=== PATIENT | male | born 2000 | race Caucasian/White ===

== ENCOUNTER 2024-07-04 09:08 | Inpatient (IN) | payer MEDICAID ==
[~2024-07-04] VITALS: Ht 167.6 cm; Wt 48.0 kg
[2024-07-04] MEDS ORDERED: HYDR453.2 TOP (09:24)
[2024-07-04] MEDS ORDERED: QUET300T20 PO (09:24)
[2024-07-04] MEDS ORDERED: ESCI5TAB17 PO (09:24)
[2024-07-04] MEDS ORDERED: LAMO100T PO (09:24)
[2024-07-04] MEDS ORDERED: GUAN1TAB PO (09:24)
[2024-07-04] MEDS ORDERED: DIVA-74 PO (09:24)
[2024-07-04] MEDS ORDERED: KETO15CR2 TOP (09:24)
[2024-07-04] MEDS ORDERED: ERGO500054 (09:24)
[2024-07-04] MEDS: normal saline 1000ML IV soln IVB ONE (10:14)
[2024-07-04] MEDS: LORazepam 2 mg/ml vial IV ONE ×3 (10:14→17:13)
[2024-07-04 10:22] LABS: BASOPHILS % (AUTO) 0.2 % (0-1); EOSINOPHILS # (AUTO) 0.1 X10'3 (0-0.9); EOSINOPHILS % (AUTO) 2.1 % (0-6); HEMATOCRIT 42.7 % (42.0-52.0); HEMOGLOBIN 14.5 g/dl (14.0-17.9); LYMPHOCYTES # (AUTO) 1.3 X10'3 (1.1-4.8); LYMPHOCYTES % (AUTO) 19.5 % (21-51); MEAN CORPUSCULAR HEMOGLOBIN 34.2 PG (27.0-31.0); MEAN CORPUSCULAR HGB CONC 33.9 g/dL (33.0-36.5); MEAN CORPUSCULAR VOLUME 100.9 FL (78-98); MEAN PLATELET VOLUME 7.5 FL (7.4-10.4); MONOCYTES # (AUTO) 0.6 X10'3 (0-0.9); MONOCYTES % (AUTO) 9.3 % (2-12); NEUTROPHILS # (AUTO) 4.4 X10'3 (1.8-7.7); NEUTROPHILS % (AUTO) 68.9 % (42-75); PLATELET COUNT 218 X10'3 (140-440); RED BLOOD COUNT 4.24 X10'6 (4.70-6.10); RED CELL DISTRIBUTION WIDTH 12.9 % (11.5-14.5); WHITE BLOOD COUNT 6.4 X10'3 (4.5-11.0)
[2024-07-04 10:36] LABS: ALANINE AMINOTRANSFERASE 17 U/L (12-78); ALBUMIN 3.9 G/DL (3.4-5.0); ALBUMIN/GLOBULIN RATIO 1.2 (1.1-1.5); ALKALINE PHOSPHATASE 63 IU/L (46-116); ANION GAP 6 (8-16); ASPARTATE AMINO TRANSFERASE 8 U/L (10-37); BILIRUBIN,TOTAL 0.2 MG/DL (0.1-1.0); BLOOD UREA NITROGEN 17 MG/DL (7-18); BUN/CREATININE RATIO 19.1 (10.0-20.0); CALCIUM 9.1 MG/DL (8.5-10.1); CHLORIDE 107 MMOL/L (99-107); CREATININE 0.89 MG/DL (0.60-1.10); GLUCOSE 133 MG/DL (70-104); POTASSIUM 3.7 MMOL/L (3.5-5.1); SODIUM 145 MMOL/L (135-145); TOTAL CARBON DIOXIDE 31.7 MMOL/L (24-32); TOTAL PROTEIN 7.2 G/DL (6.4-8.2); eCRCL 89 ML/MIN; eGFR > 90 ML/MIN
[2024-07-04 10:47] LABS: PRO BRAIN NATRIURETIC PEPTIDE < 30 PG/ML (0-125)
[2024-07-04] MEDS: divalproex 250mg tablet, delayed-release PO ONE (11:13)
[2024-07-04] MEDS: Levetiracetam-NACL 500mg/100ml 100 ML IV ONE (11:27)
[2024-07-04] MEDS ORDERED: HYDROcodone/acetaminophen 5mg/325mg tablet PO PRN (11:35)
[2024-07-04] MEDS ORDERED: acetaminophen 325mg tablet PO PRN ×2 (11:35)
[2024-07-04] MEDS ORDERED: magnesium hydroxide 30ml (MOM) UD suspension PO PRN (11:35)
[2024-07-04] MEDS ORDERED: acetaminophen 650mg rectal suppository RC PRN (11:35)
[2024-07-04] MEDS ORDERED: morphine 2 MG/ML inj. syringe IV PRN (11:35)
[2024-07-04] MEDS ORDERED: mag hydrox/Alum hydrox/simeth 30ml oral suspension PO PRN (11:35)
[2024-07-04] MEDS ORDERED: diphenhydrAMINE 25mg capsule PO PRN (11:35)
[2024-07-04] MEDS ORDERED: ondansetron/PF 4mg/2ml inj IV PRN (11:35)
[2024-07-04] MEDS ORDERED: diphenhydrAMINE 50 mg/ml inj IV PRN (11:35)
[2024-07-04] MEDS ORDERED: ondansetron 4mg rapidly disintigrating tab PO PRN (11:35)
[2024-07-04] MEDS ORDERED: bisacodyl 10mg suppository rectal RC PRN (11:35)
[2024-07-04] MEDS: normal saline 1000ml 1,000 ML IV SCH (11:35)
[2024-07-04 12:00] LABS: PROTHROMBIN TIME 10.6 SECONDS (9.0-12.0)
[2024-07-04 12:06] LABS: MAGNESIUM 2.1 MG/DL (1.5-2.4); PHOSPHORUS 3.7 MG/DL (2.3-4.5)
[2024-07-04 12:08] LABS: APTT 26 SECONDS (22-32)
[2024-07-04 12:09] LABS: HEMOGLOBIN A1C 5.1 % (4.5-6.2)
[2024-07-04 12:44] LABS: CREATINE KINASE 61 U/L (39-308); LIPASE 26 U/L (16-77); THYROID STIMULATING HORMONE 2.67 ulU/ml (0.34-4.50); VALPROATE 34 UG/ML (50-100)
[2024-07-04 12:54] LABS: BILIRUBIN,URINE NEGATIVE (Neg); CLARITY,URINE CLEAR (Clear); COLOR,URINE YELLOW (Yellow); GLUCOSE, URINE NEGATIVE (Neg); KETONES,URINE NEGATIVE (Neg); LEUKOCYTE ESTERASE ,URINE NEGATIVE (Neg); NITRITES, URINE NEGATIVE (Neg); OCCULT BLOOD,URINE NEGATIVE (Neg); PH,URINE 6.5 (4.8-8.0); PROTEIN,URINE NEGATIVE (Neg); UROBILINOGEN,URINE 0.2 E.U/dL (0.2-1.0)
[2024-07-04 12:55] LABS: UA COLLECTION TYPE CLN CATCH MIDSTREAM
[2024-07-04 13:10] LABS: URINE AMPHETAMINE SCREEN NEGATIVE (Neg); URINE BARBITUATE SCREEN NEGATIVE (Neg); URINE BENZODIAZEPINES SCREEN NEGATIVE (Neg); URINE CANNABINOID SCREEN NEGATIVE (Neg); URINE COCAINE SCREEN NEGATIVE (Neg); URINE METHADONE SCREEN NEGATIVE (Neg); URINE OPIATE SCREEN NEGATIVE (Neg); URINE PHENCYCLIDINE SCREEN NEGATIVE (Neg)
[2024-07-04] MEDS: Levetiracetam-NACL 500mg/100ml 100 ML IV SCH (19:54)
[2024-07-04] MEDS: docusate sod 100mg capsule PO SCH (19:55)
[2024-07-04] MEDS: heparin, porcine 5000 units/ml vial SQ SCH (19:55)
[2024-07-04] MEDS ORDERED: levetiracetam inj 500 MG in normal saline 100ml IV soln 100 ML IV SCH (20:00)
[2024-07-04] MEDS ORDERED: quetiapine 100mg tablet PO ONE (23:36)
[2024-07-04] MEDS: quetiapine 100mg tablet PO STA (23:47)
[2024-07-05 03:01] LABS: BASOPHILS % (AUTO) 0.1 % (0-1); EOSINOPHILS # (AUTO) 0.2 X10'3 (0-0.9); EOSINOPHILS % (AUTO) 3.3 % (0-6); HEMATOCRIT 41.3 % (42.0-52.0); LYMPHOCYTES # (AUTO) 1.9 X10'3 (1.1-4.8); LYMPHOCYTES % (AUTO) 28.1 % (21-51); MEAN CORPUSCULAR HEMOGLOBIN 34.4 PG (27.0-31.0); MEAN CORPUSCULAR VOLUME 101.3 FL (78-98); MEAN PLATELET VOLUME 7.4 FL (7.4-10.4); MONOCYTES # (AUTO) 0.8 X10'3 (0-0.9); MONOCYTES % (AUTO) 11.1 % (2-12); NEUTROPHILS # (AUTO) 3.9 X10'3 (1.8-7.7); NEUTROPHILS % (AUTO) 57.4 % (42-75); PLATELET COUNT 217 X10'3 (140-440); RED BLOOD COUNT 4.08 X10'6 (4.70-6.10); RED CELL DISTRIBUTION WIDTH 13.1 % (11.5-14.5); WHITE BLOOD COUNT 6.9 X10'3 (4.5-11.0)
[2024-07-05 03:21] LABS: ALANINE AMINOTRANSFERASE 16 U/L (12-78); ALBUMIN 3.5 G/DL (3.4-5.0); ALBUMIN/GLOBULIN RATIO 1.2 (1.1-1.5); ALKALINE PHOSPHATASE 64 IU/L (46-116); ANION GAP 6 (8-16); ASPARTATE AMINO TRANSFERASE 16 U/L (10-37); BILIRUBIN,TOTAL 0.4 MG/DL (0.1-1.0); BLOOD UREA NITROGEN 7 MG/DL (7-18); BUN/CREATININE RATIO 10.4 (10.0-20.0); CALCIUM 8.3 MG/DL (8.5-10.1); CHLORIDE 109 MMOL/L (99-107); CHOL/HDL RATIO 3.1 (0.00-4.99); CHOLESTEROL 154 MG/DL (0-200); CREATININE 0.67 MG/DL (0.60-1.10); GLUCOSE 80 MG/DL (70-104); HDL CHOLESTEROL 49 MG/DL (35-60); LDL CHOLESTEROL 92 MG/DL (50-100); POTASSIUM 3.3 MMOL/L (3.5-5.1); SODIUM 143 MMOL/L (135-145); TOTAL CARBON DIOXIDE 27.7 MMOL/L (24-32); TOTAL PROTEIN 6.5 G/DL (6.4-8.2); TRIGLYCERIDES 61 MG/DL (20-135); eCRCL 118 ML/MIN; eGFR > 90 ML/MIN
[2024-07-05] MEDS: temazepam 15mg capsule PO PRN (04:33)
[2024-07-05] MEDS: pantoprazole 40mg Tablet.DR PO SCH (07:30)
[2024-07-05] MEDS ORDERED: potassium Cl 40MEQ/1/2NS 520ml 520 ML IV PRN (12:05)
[2024-07-05] MEDS ORDERED: magnesium Cl slow-release 64mg tablet PO PRN (12:05)
[2024-07-05] MEDS ORDERED: magnesium sulf-water 2g/50mL 50 ML IV PRN (12:05)
[2024-07-05] MEDS ORDERED: potassium Cl 20 mEq SR tablet PO PRN ×2 (12:05)
[2024-07-05] MEDS ORDERED: magnesium sulf-water 4G/100mL 100 ML IV PRN (12:05)
[2024-07-05] MEDS ORDERED: mineral oil 133ml enema RC PRN (12:10)
[2024-07-05] MEDS ORDERED: lactulose 20gm/30ml cup PO PRN (12:10)
[2024-07-05] MEDS: magnesium citrate 296ml oral solution PO ONE (12:12)
[2024-07-05] MEDS: ringers solution, lacted 1,000 ML IV ONE (12:12)
[2024-07-05 16:48] VITALS: BP 104/67; PULSE 84; RESP 14; TEMP 97.8; O2SAT 99
[2024-07-05 18:00] VITALS: BP 93/58; PULSE 89; RESP 16; TEMP 98; O2SAT 99
[2024-07-05] MEDS: polyethylene glycol 3350 17gm powd pack PO SCH (19:44)
[2024-07-05] MEDS: K and/or MAG REPLACEMENT MC SCH (20:00)
[2024-07-06 06:00] VITALS: BP 85/47; PULSE 76; RESP 16; TEMP 98.3; O2SAT 97
[2024-07-06 06:10] LABS: BASOPHILS % (AUTO) 0.1 % (0-1); EOSINOPHILS # (AUTO) 0.1 X10'3 (0-0.9); EOSINOPHILS % (AUTO) 2.7 % (0-6); HEMATOCRIT 40.3 % (42.0-52.0); HEMOGLOBIN 13.7 g/dl (14.0-17.9); LYMPHOCYTES # (AUTO) 1.5 X10'3 (1.1-4.8); LYMPHOCYTES % (AUTO) 26.6 % (21-51); MEAN CORPUSCULAR HEMOGLOBIN 34.4 PG (27.0-31.0); MEAN CORPUSCULAR HGB CONC 34.1 g/dL (33.0-36.5); MEAN PLATELET VOLUME 7.7 FL (7.4-10.4); MONOCYTES # (AUTO) 0.9 X10'3 (0-0.9); MONOCYTES % (AUTO) 15.8 % (2-12); NEUTROPHILS # (AUTO) 3.1 X10'3 (1.8-7.7); NEUTROPHILS % (AUTO) 54.8 % (42-75); PLATELET COUNT 228 X10'3 (140-440); RED BLOOD COUNT 3.99 X10'6 (4.70-6.10); RED CELL DISTRIBUTION WIDTH 12.7 % (11.5-14.5)
[2024-07-06 06:13] LABS: WHITE BLOOD COUNT 11.4 X10'3 (4.5-11.0)
[2024-07-06 06:56] LABS: ALANINE AMINOTRANSFERASE 19 U/L (12-78); ALBUMIN 3.6 G/DL (3.4-5.0); ALBUMIN/GLOBULIN RATIO 1.1 (1.1-1.5); ALKALINE PHOSPHATASE 71 IU/L (46-116); ANION GAP 6 (8-16); ASPARTATE AMINO TRANSFERASE 13 U/L (10-37); BILIRUBIN,TOTAL 0.5 MG/DL (0.1-1.0); BLOOD UREA NITROGEN 12 MG/DL (7-18); BUN/CREATININE RATIO 12.8 (10.0-20.0); CALCIUM 8.9 MG/DL (8.5-10.1); CHLORIDE 104 MMOL/L (99-107); CREATININE 0.94 MG/DL (0.60-1.10); GLUCOSE 85 MG/DL (70-104); MAGNESIUM 2.9 MG/DL (1.5-2.4); POTASSIUM 3.9 MMOL/L (3.5-5.1); SODIUM 141 MMOL/L (135-145); TOTAL CARBON DIOXIDE 31.1 MMOL/L (24-32); TOTAL PROTEIN 6.9 G/DL (6.4-8.2); eCRCL 84 ML/MIN; eGFR > 90 ML/MIN
[2024-07-06] MEDS ORDERED: MELA10TA2 PO (10:17)
[2024-07-06] MEDS ORDERED: KEN0.1O TP (10:18)
[2024-07-06 11:00] VITALS: BP 122/78; PULSE 98; RESP 16; TEMP 98.6; O2SAT 97
[2024-07-06] MEDS: lactose-reduced food (Ensure Enlive) - 237ml bottle PO SCH (13:00)
[2024-07-06] MEDS ORDERED: DIVA-76 PO (15:15)
[2024-07-06] MEDS ORDERED: QUET-1 PO (15:15)
[2024-07-06] MEDS ORDERED: LEVE500T99 PO (15:15)
[2024-07-06] MEDS: sennosides/docusate sodium tablet PO ONE (15:26)
[2024-07-06] MEDS: normal saline 1000ml 1,000 ML IV ONE (15:35)
[2024-07-06] MEDS ORDERED: SENN-267 PO (19:18)
[2024-07-06] MEDS ORDERED: sennosides/docusate sodium tablet PO SCH (20:00)
== END 2024-07-06 17:48 | disposition home or self-care (01) | DRG 53 ==
LOC: ER 09:09 → ED HOLD 11:39 → ORTHO 4S 07-05 15:52
PROVIDERS: ADMIT Family Medicine; ATTEND Family Medicine
PROC: 4A00X4Z Measurement of Central Nervous Electrical Activity, External Approach (ICD-10-PCS; principal; 2024-07-05)
DX: G40.909 Epilepsy, unspecified, not intractable, without status epilepticus (principal); E46 Unspecified protein-calorie malnutrition; K59.00 Constipation, unspecified; F90.9 Attention-deficit hyperactivity disorder, unspecified type; F84.0 Autistic disorder; Z68.1 Body mass index [BMI] 19.9 or less, adult; Z79.899 Other long term (current) drug therapy
CPT/HCPCS: 36415; 71045; 74176; 80053; 80061; 80164; 80305; 81003; 82542; 82550; 83036; 83690; 83735; 83880; 84100; 84443; 84484; 85025; 85610; 85730; 87081; 93005; 95816; 97161; 97530; 99285; A6258; G0378; J1644; J1953; J2060; J7030; J7120

== ENCOUNTER 2024-07-12 18:24 | Inpatient (IN) | payer MEDICAID ==
[~2024-07-12] VITALS: Ht 162.6 cm; Wt 56.0 kg
[~2024-07-12 18:24] MED LIST: DIVA-76 PO; HYDR453.2 TOP; KEN0.1O TP; KETO15CR2 TOP; LEVE500T99 PO; MELA10TA2 PO; SENN-267 PO
[2024-07-12 20:57] LABS: BASOPHILS % (AUTO) 0.3 % (0-1); EOSINOPHILS # (AUTO) 0.1 X10'3 (0-0.9); EOSINOPHILS % (AUTO) 0.6 % (0-6); HEMATOCRIT 42.8 % (42.0-52.0); HEMOGLOBIN 14.5 g/dl (14.0-17.9); LYMPHOCYTES # (AUTO) 1.5 X10'3 (1.1-4.8); LYMPHOCYTES % (AUTO) 17.4 % (21-51); MEAN CORPUSCULAR HGB CONC 33.9 g/dL (33.0-36.5); MEAN CORPUSCULAR VOLUME 100.4 FL (78-98); MEAN PLATELET VOLUME 7.5 FL (7.4-10.4); MONOCYTES % (AUTO) 11.2 % (2-12); NEUTROPHILS # (AUTO) 6.2 X10'3 (1.8-7.7); NEUTROPHILS % (AUTO) 70.5 % (42-75); PLATELET COUNT 312 X10'3 (140-440); RED BLOOD COUNT 4.27 X10'6 (4.70-6.10); RED CELL DISTRIBUTION WIDTH 12.9 % (11.5-14.5); WHITE BLOOD COUNT 8.8 X10'3 (4.5-11.0)
[2024-07-12 21:32] LABS: ALANINE AMINOTRANSFERASE 19 U/L (12-78); ALBUMIN 4.3 G/DL (3.4-5.0); ALBUMIN/GLOBULIN RATIO 1.2 (1.1-1.5); ALKALINE PHOSPHATASE 66 IU/L (46-116); ANION GAP 9 (8-16); ASPARTATE AMINO TRANSFERASE 10 U/L (10-37); BILIRUBIN,TOTAL 0.3 MG/DL (0.1-1.0); BLOOD UREA NITROGEN 18 MG/DL (7-18); BUN/CREATININE RATIO 20.7 (10.0-20.0); CALCIUM 9.6 MG/DL (8.5-10.1); CHLORIDE 105 MMOL/L (99-107); CREATININE 0.87 MG/DL (0.60-1.10); ETHANOL < 10 MG/DL (<10); GLUCOSE 98 MG/DL (70-104); POTASSIUM 3.6 MMOL/L (3.5-5.1); SODIUM 140 MMOL/L (135-145); TOTAL CARBON DIOXIDE 25.6 MMOL/L (24-32); TOTAL PROTEIN 7.9 G/DL (6.4-8.2); VALPROATE 80 UG/ML (50-100); eCRCL 106 ML/MIN; eGFR > 90 ML/MIN
[2024-07-12 23:16] LABS: CREATINE KINASE 320 U/L (39-308)
[2024-07-12] MEDS ORDERED: levetiracetam inj 1,500 MG in normal saline 100ml IV soln 100 ML IV SCH (23:30)
[2024-07-12] MEDS: diazepam inj 5 MG/ML inj. IV ONE ×2 (23:35→23:36)
[2024-07-12] MEDS: normal saline 1000ml 1,000 ML IV ONE (23:36)
[2024-07-12] MEDS: levetiracetamNACL 1500mg/100mL 100 ML IV SCH (23:44)
[2024-07-13] MEDS ORDERED: potassium Cl 20 mEq SR tablet PO PRN ×2 (00:50)
[2024-07-13] MEDS ORDERED: magnesium sulf-water 2g/50mL 50 ML IV PRN (00:50)
[2024-07-13] MEDS ORDERED: mag hydrox/Alum hydrox/simeth 30ml oral suspension PO PRN (00:50)
[2024-07-13] MEDS ORDERED: magnesium sulf-water 4G/100mL 100 ML IV PRN (00:50)
[2024-07-13] MEDS ORDERED: ondansetron/PF 4mg/2ml inj IV PRN (00:50)
[2024-07-13] MEDS ORDERED: magnesium Cl slow-release 64mg tablet PO PRN (00:50)
[2024-07-13] MEDS ORDERED: potassium Cl 40MEQ/1/2NS 520ml 520 ML IV PRN (00:50)
[2024-07-13] MEDS ORDERED: acetaminophen 325mg tablet PO PRN (00:50)
[2024-07-13] MEDS ORDERED: magnesium hydroxide 30ml (MOM) UD suspension PO PRN (00:50)
[2024-07-13] MEDS: DEXTROSE 5% IV ONE (01:19)
[2024-07-13] MEDS: VALPROATE SOD IV ONE (01:19)
[2024-07-13] MEDS: WATER IV ONE (01:19)
[2024-07-13] MEDS ORDERED: UNABLE TO OBTAIN (02:49)
[2024-07-13] MEDS: normal saline 1000ml 1,000 ML IV ONE (03:42)
[2024-07-13 06:00] VITALS: BP 103/52; PULSE 97; RESP 16; TEMP 97.7; O2SAT 99
[2024-07-13] MEDS: K and/or MAG REPLACEMENT MC SCH (07:44)
[2024-07-13] MEDS: LEVETIRACETAM 500 MG PO SCH (07:47)
[2024-07-13] MEDS: valproate sod inj 500 MG in dextrose 5%-water 50ml 50 ML IV SCH (07:58)
[2024-07-13] MEDS ORDERED: QUET100T34 PO (09:06)
[2024-07-13 10:53] VITALS: BP 101/59; PULSE 96; RESP 17; TEMP 98.4; O2SAT 98
[2024-07-13 18:00] VITALS: BP 122/65; PULSE 81; RESP 16; TEMP 98; O2SAT 99
[2024-07-13 20:00] VITALS: RESP 18; O2SAT 97
[2024-07-13] MEDS: divalproex sod 250mg ER (24-hour) tablet PO SCH (21:03)
[2024-07-13 21:23] LABS: BILIRUBIN,URINE NEGATIVE (Neg); CLARITY,URINE CLEAR (Clear); COLOR,URINE YELLOW (Yellow); GLUCOSE, URINE NEGATIVE (Neg); KETONES,URINE TRACE mg/dl (Neg); LEUKOCYTE ESTERASE ,URINE NEGATIVE (Neg); NITRITES, URINE NEGATIVE (Neg); OCCULT BLOOD,URINE NEGATIVE (Neg); PROTEIN,URINE NEGATIVE (Neg); UROBILINOGEN,URINE 0.2 E.U/dL (0.2-1.0)
[2024-07-13 21:28] LABS: UA COLLECTION TYPE CLN CATCH MIDSTREAM
[2024-07-13 21:49] LABS: URINE AMPHETAMINE SCREEN NEGATIVE (Neg); URINE BARBITUATE SCREEN NEGATIVE (Neg); URINE BENZODIAZEPINES SCREEN NEGATIVE (Neg); URINE CANNABINOID SCREEN NEGATIVE (Neg); URINE COCAINE SCREEN NEGATIVE (Neg); URINE METHADONE SCREEN NEGATIVE (Neg); URINE OPIATE SCREEN NEGATIVE (Neg); URINE PHENCYCLIDINE SCREEN NEGATIVE (Neg)
[2024-07-13 22:00] VITALS: BP 111/81; PULSE 79; RESP 16; TEMP 98.3; O2SAT 96
[2024-07-14 05:29] LABS: BASOPHILS % (AUTO) 0.3 % (0-1); EOSINOPHILS # (AUTO) 0.2 X10'3 (0-0.9); EOSINOPHILS % (AUTO) 2.3 % (0-6); HEMATOCRIT 42.5 % (42.0-52.0); HEMOGLOBIN 14.6 g/dl (14.0-17.9); LYMPHOCYTES # (AUTO) 2.1 X10'3 (1.1-4.8); LYMPHOCYTES % (AUTO) 28.6 % (21-51); MEAN CORPUSCULAR HEMOGLOBIN 35.2 PG (27.0-31.0); MEAN CORPUSCULAR HGB CONC 34.4 g/dL (33.0-36.5); MEAN CORPUSCULAR VOLUME 102.2 FL (78-98); MEAN PLATELET VOLUME 7.4 FL (7.4-10.4); MONOCYTES # (AUTO) 1.2 X10'3 (0-0.9); MONOCYTES % (AUTO) 16.2 % (2-12); NEUTROPHILS # (AUTO) 3.8 X10'3 (1.8-7.7); NEUTROPHILS % (AUTO) 52.6 % (42-75); PLATELET COUNT 265 X10'3 (140-440); RED BLOOD COUNT 4.16 X10'6 (4.70-6.10); RED CELL DISTRIBUTION WIDTH 12.9 % (11.5-14.5); WHITE BLOOD COUNT 7.3 X10'3 (4.5-11.0)
[2024-07-14 05:51] LABS: ALBUMIN 3.9 G/DL (3.4-5.0); ANION GAP 9 (8-16); CHLORIDE 105 MMOL/L (99-107); CREATININE 0.73 MG/DL (0.60-1.10); GLUCOSE 91 MG/DL (70-104); POTASSIUM 3.8 MMOL/L (3.5-5.1); SODIUM 141 MMOL/L (135-145); TOTAL CARBON DIOXIDE 26.7 MMOL/L (24-32); eCRCL 126 ML/MIN; eGFR > 90 ML/MIN
[2024-07-14 06:00] VITALS: BP 94/57; PULSE 76; RESP 16; TEMP 97.9; O2SAT 90
[2024-07-14 06:17] LABS: BLOOD UREA NITROGEN 13 MG/DL (7-18); BUN/CREATININE RATIO 17.8 (10.0-20.0)
[2024-07-14 06:21] LABS: PLATELET ESTIMATE NORMAL; TOTAL CELLS COUNTED 100
[2024-07-14 10:00] VITALS: BP 106/67; PULSE 92; RESP 16; TEMP 98.1; O2SAT 99
[2024-07-14] MEDS: diazepam inj 5 MG/ML inj. IV ONE (15:16)
[2024-07-14] MEDS ORDERED: divalproex sod 125mg sprinkle cap PO SCH (16:28)
[2024-07-14] MEDS ORDERED: LEVETIRACETAM 500 MG PO SCH (16:28)
[2024-07-14] MEDS: GADOTERATE MEGLUMINE 7.5 MMOL/15 ML VIAL IV ONE (17:11)
[2024-07-14 18:30] VITALS: BP 125/80; PULSE 122; RESP 18; TEMP 98.1; O2SAT 97
[2024-07-14] MEDS: Melatonin 3mg tablet PO SCH (20:03)
[2024-07-14] MEDS: divalproex sodium 500mg tablet.DR PO SCH (20:03)
[2024-07-14] MEDS: quetiapine 100mg tablet PO SCH (20:04)
[2024-07-14] MEDS: sennosides/docusate sodium tablet PO SCH (20:04)
[2024-07-14] MEDS: triamcinolone acet 0.1% cream 15gm TP SCH (20:04)
[2024-07-14 22:00] VITALS: BP 105/66; PULSE 89; RESP 16; TEMP 98.8; O2SAT 93
[2024-07-15 05:45] LABS: BASOPHILS % (AUTO) 0.5 % (0-1); EOSINOPHILS # (AUTO) 0.2 X10'3 (0-0.9); HEMATOCRIT 45.4 % (42.0-52.0); HEMOGLOBIN 15.7 g/dl (14.0-17.9); LYMPHOCYTES # (AUTO) 2.5 X10'3 (1.1-4.8); LYMPHOCYTES % (AUTO) 40.8 % (21-51); MEAN CORPUSCULAR HEMOGLOBIN 34.6 PG (27.0-31.0); MEAN CORPUSCULAR HGB CONC 34.5 g/dL (33.0-36.5); MEAN CORPUSCULAR VOLUME 100.2 FL (78-98); MEAN PLATELET VOLUME 7.7 FL (7.4-10.4); MONOCYTES % (AUTO) 16.4 % (2-12); NEUTROPHILS # (AUTO) 2.3 X10'3 (1.8-7.7); NEUTROPHILS % (AUTO) 38.3 % (42-75); PLATELET COUNT 245 X10'3 (140-440); RED BLOOD COUNT 4.53 X10'6 (4.70-6.10); RED CELL DISTRIBUTION WIDTH 13.2 % (11.5-14.5); WHITE BLOOD COUNT 6.1 X10'3 (4.5-11.0)
[2024-07-15 05:55] LABS: ANION GAP 7 (8-16); BLOOD UREA NITROGEN 15 MG/DL (7-18); BUN/CREATININE RATIO 18.8 (10.0-20.0); CALCIUM 9.5 MG/DL (8.5-10.1); CHLORIDE 109 MMOL/L (99-107); GLUCOSE 83 MG/DL (70-104); POTASSIUM 3.7 MMOL/L (3.5-5.1); SODIUM 145 MMOL/L (135-145); TOTAL CARBON DIOXIDE 28.9 MMOL/L (24-32); eCRCL 115 ML/MIN; eGFR > 90 ML/MIN
[2024-07-15 06:00] VITALS: BP 106/79; PULSE 91; RESP 16; TEMP 98; O2SAT 98
[2024-07-15 10:00] VITALS: BP 113/73; PULSE 97; RESP 19; TEMP 97.5; O2SAT 100
[2024-07-15] MEDS ORDERED: KEP500T PO (16:48)
[2024-07-15] MEDS ORDERED: DIVA500T2 PO (16:48)
== END 2024-07-15 17:30 | disposition home or self-care (01) | DRG 53 ==
LOC: ER 18:25 → ED HOLD 07-13 00:49 → ORTHO 4S 07-13 05:13
PROVIDERS: ADMIT Internal Medicine Pulmonary Disease; ATTEND Family Medicine
PROC: 4A00X4Z Measurement of Central Nervous Electrical Activity, External Approach (ICD-10-PCS; principal; 2024-07-13)
DX: G40.401 Other generalized epilepsy and epileptic syndromes, not intractable, with status epilepticus (principal); F70 Mild intellectual disabilities; F84.0 Autistic disorder; F90.9 Attention-deficit hyperactivity disorder, unspecified type; Z79.899 Other long term (current) drug therapy
CPT/HCPCS: 36415; 70450; 70553; 80048; 80053; 80164; 80177; 80305; 80320; 81003; 82550; 82948; 83605; 84100; 84145; 85007; 85025; 87040; 87081; 93005; 95816; 99291; A4620; G0378; J1953; J3360; J3490; J7030; J7040; J7060